=== PATIENT | male | born 1980 | race Caucasian/White ===

== ENCOUNTER 2023-01-15 14:16 | Outpatient (CLI) | payer BC, SELFPAY ==
[2023-01-15 15:20] VITALS: BP 135/78; PULSE 99
--- NOTE | 2023-01-15 15:50 | P.STN_ITS ---
Stress Test Note Date Date of test: 01/15/23 Providers Primary care provider: Su Alexander Stress test physician: Mathew Armas Stress Test Note Stress test ordered: Stress Echo Indication for test: Family history of cardiac disease, with elevated calcium score on CT Stress test medicine: None Results discussion: Patient is a very nice 42-year-old gentleman who presents here for the above concern, discussion the risks benefits side effects he would like to continue, cardiac stress test medical history form is reviewed. Pretest EKG shows normal sinus rhythm with a ventricular rate 82 and a blood pressure 137/85. Some mild ST wave flattening noted both inferiorly and laterally. On the pre test EKG. Standard [facility] protocol is employed over a time course of 11 minutes. His maximum heart rate of 159 with a target of 104% of the maximum. During this test there is no subjective complaints of chest pain shortness of breath, he did have some mild leg discomfort, objectively horizontal ST wave depression of on average 1.5 mm is noted inferiorly. Downsloping ST wave depression of on average 2 mm is noted from V4 through V6. This recovered in the recovery phase. Impression: Positive electrographic portion of stress test both inferior and lateral depr ession is noted. Subjectively negative, patient did obtain a high workload, clinical correlation is suggested with echo portion Follow up suggested: Cardiology will review the echo portion, clinical correlation with this with this stress test will be needed, patient did exercised to a high level, further testing and possible Cardiology consult may be needed.
== END 2023-01-15 14:17 | disposition home or self-care (01) ==
LOC: STRESS 14:17
PROVIDERS: PCP Physician Assistant Medical; Visit Provider Family Medicine
DX: I25.10 Atherosclerotic heart disease of native coronary artery without angina pectoris (principal); I10 Essential (primary) hypertension; R06.00 Dyspnea, unspecified
CPT/HCPCS: 93016; 93325; 93351

== ENCOUNTER 2023-10-01 08:10 | Outpatient (CLI) | payer BC, SELFPAY | END 2023-10-01 08:11 | disposition home or self-care (01) | LOC: NFLDREF 10-03 11:35 | PROVIDERS: PCP Physician Assistant Medical; Referring Provider Physician Assistant Medical; Visit Provider Physician Assistant Medical | DX: Z00.00 Encounter for general adult medical examination without abnormal findings (principal); I10 Essential (primary) hypertension; Z13.6 Encounter for screening for cardiovascular disorders; Z13.1 Encounter for screening for diabetes mellitus; Z13.0 Encounter for screening for diseases of the blood and blood-forming organs and certain disorders involving the immune mechanism; Z11.59 Encounter for screening for other viral diseases; Z11.3 Encounter for screening for infections with a predominantly sexual mode of transmission | CPT/HCPCS: 80053; 80061; 84443; 86703; 86803 ==